=== PATIENT | female | born 1985 | race Caucasian/White ===

== ENCOUNTER 2019-10-19 10:35 | Emergency (ER) | payer MEDICARE ==
[~2019-10-19] VITALS: Ht 157.5 cm; Wt 58.0 kg
[~2019-10-19 10:35] MED LIST: ALBU6.7H9 INH
[2019-10-19] MEDS ORDERED: ondansetron/PF 4mg/2ml inj IV ONE (11:00)
[2019-10-19] MEDS ORDERED: morphine 4 MG/ML inj SYRINge IV ONE (11:00)
[2019-10-19] MEDS ORDERED: iohexol 300mg/ml 100ml inj. ONE (11:04)
--- NOTE | 2019-10-19 11:16 | NUR ---
PATIENT TO CT SCAN VIA WC ALLY HAS MANY OF HER JOINTS LARGER THAN NORMAL
[2019-10-19 12:00] VITALS: BP 130/40
[2019-10-19] MEDS ORDERED: HYDR-4353 PO (12:04)
[2019-10-19] MEDS ORDERED: ONDA4TAB6 PO (12:04)
[2019-10-19] MEDS ORDERED: HYDROcodone/acetaminophen 10/325mg tab PO ONE ×2 (12:05)
[2019-10-19] MEDS ORDERED: ondansetron 4mg rapidly disintigrating tab PO ONE (12:05)
== END 2019-10-19 12:24 | disposition home or self-care (01) ==
LOC: ER 10:35
DX: S32.019A Unspecified fracture of first lumbar vertebra, initial encounter for closed fracture (principal); S20.222A Contusion of left back wall of thorax, initial encounter; M19.90 Unspecified osteoarthritis, unspecified site; Z98.890 Other specified postprocedural states; Z88.0 Allergy status to penicillin; Z79.899 Other long term (current) drug therapy; W18.39XA Other fall on same level, initial encounter; Y93.89 Activity, other specified; Y92.89 Other specified places as the place of occurrence of the external cause; Y99.8 Other external cause status
CPT/HCPCS: 71260; 74177; 96374; 96375; 99284; J2270; J2405; Q9967

== ENCOUNTER 2022-01-11 17:58 | Emergency (ER) | payer MEDICARE ==
[~2022-01-11] VITALS: Ht 157.5 cm; Wt 62.7 kg
[~2022-01-11 17:58] MED LIST changes: +ONDA4TAB6 PO
[2022-01-11 18:06] VITALS: BP 127/87
== END 2022-01-11 21:27 | disposition left against medical advice (07) ==
LOC: ER 17:58
DX: M54.9 Dorsalgia, unspecified (principal); Z53.21 Procedure and treatment not carried out due to patient leaving prior to being seen by health care provider